=== PATIENT | female | born 1935 | race Native Hawaiian/Other Pacific Islander ===

== ENCOUNTER 2016-04-20 09:32 | Inpatient (IN) | payer OTHER ==
[~2016-04-20 09:32] MED LIST: AMOX875T8 PO; ASA LOW DOSE81 MG PO; CLOP75TA2 PO; DEXL60CA4 PO; DICL1GEL2 TOP; DILT30TA24 PO; DILTIAZEM240 M1 PO; DONE5TAB PO; FERR325T5 PO; GLIP10TA55 PO; GLIP5TAB65 PO; LEVO0.0529 PO; MELOXICAM7.5 MG OR; METO50TA63 PO; OMEPRAZOLE40 MG OR; PRILOSEC40 MG OR; ROSU10TA PO; TOPROL XL50 MG PO; TRAVATAN Z0.004 % OP; TRIM800T12 PO
== END 2016-05-21 08:00 | disposition still patient (30) ==
LOC: PAVB 09:32
PROVIDERS: ADMIT Internal Medicine
DX: Z51.89 Encounter for other specified aftercare (principal)

== ENCOUNTER 2016-05-21 09:00 | Inpatient (IN) | payer OTHER | END 2016-06-21 10:17 | disposition still patient (30) | LOC: PAVB 09:00 | PROVIDERS: ADMIT Internal Medicine | DX: Z51.89 Encounter for other specified aftercare (principal) ==

== ENCOUNTER 2016-05-22 07:17 | Outpatient (CLI) | payer OTHER | END 2016-05-22 19:19 | disposition home or self-care (01) | LOC: LAB 07:17 | DX: E11.9 Type 2 diabetes mellitus without complications (principal) | CPT/HCPCS: 36415; 83036 ==

== ENCOUNTER 2016-06-21 10:45 | Inpatient (IN) | payer OTHER | END 2016-07-19 09:46 | disposition still patient (30) | LOC: PAVB 10:45 | PROVIDERS: ADMIT Internal Medicine | DX: Z51.89 Encounter for other specified aftercare (principal) ==

== ENCOUNTER 2016-07-19 10:42 | Inpatient (IN) | payer OTHER | END 2016-08-19 08:07 | disposition still patient (30) | LOC: PAVB 10:42 | PROVIDERS: ADMIT Internal Medicine | DX: Z51.89 Encounter for other specified aftercare (principal) ==

== ENCOUNTER 2016-08-19 09:30 | Inpatient (IN) | payer OTHER | END 2016-09-18 09:13 | disposition still patient (30) | LOC: PAVB 09:30 | PROVIDERS: ADMIT Internal Medicine | DX: Z51.89 Encounter for other specified aftercare (principal) ==

== ENCOUNTER 2016-08-21 06:50 | Outpatient (CLI) | payer OTHER ==
[2016-08-21 07:55] LABS: PLATELET COUNT 201 K/uL (152-353)
[2016-08-21 09:58] LABS: POTASSIUM 3.9 mmol/L (3.6-5.2)
== END 2016-08-21 07:50 | disposition home or self-care (01) ==
LOC: LAB 06:50
PROVIDERS: Internal Medicine
DX: E11.9 Type 2 diabetes mellitus without complications (principal); I10 Essential (primary) hypertension; E03.8 Other specified hypothyroidism
CPT/HCPCS: 36415; 80053; 80061; 83036; 84443; 85027

== ENCOUNTER 2016-09-04 16:08 | Outpatient (CLI) | payer OTHER | END 2016-09-04 19:28 | disposition home or self-care (01) | LOC: LAB 16:08 | DX: Z16.24 Resistance to multiple antibiotics (principal) | CPT/HCPCS: 87081 ==

== ENCOUNTER 2016-09-18 10:04 | Inpatient (IN) | payer OTHER | END 2016-10-19 09:36 | disposition still patient (30) | LOC: PAVB 10:04 | PROVIDERS: ADMIT Internal Medicine | DX: Z51.89 Encounter for other specified aftercare (principal) ==

== ENCOUNTER 2016-10-19 10:03 | Inpatient (IN) | payer OTHER | END 2016-11-18 15:23 | disposition still patient (30) | LOC: PAVB 10:03 | PROVIDERS: ADMIT Internal Medicine | DX: Z51.89 Encounter for other specified aftercare (principal) ==

== ENCOUNTER 2016-10-21 18:28 | Outpatient (CLI) | payer OTHER | END 2016-10-21 19:30 | disposition home or self-care (01) | LOC: LAB 18:28 | DX: R82.99 Other abnormal findings in urine (principal) | CPT/HCPCS: 81000; 87077; 87086; 87088; 87186 ==

== ENCOUNTER 2016-11-18 15:44 | Inpatient (IN) | payer OTHER | END 2016-12-19 09:44 | disposition still patient (30) | LOC: PAVB 15:44 | PROVIDERS: ADMIT Internal Medicine | DX: Z51.89 Encounter for other specified aftercare (principal) ==

== ENCOUNTER 2016-11-22 02:40 | Outpatient (CLI) | payer OTHER | END 2016-11-22 18:59 | disposition home or self-care (01) | LOC: LAB 02:40 | DX: E11.9 Type 2 diabetes mellitus without complications (principal) | CPT/HCPCS: 36415; 83036 ==

== ENCOUNTER 2016-12-19 10:38 | Inpatient (IN) | payer OTHER | END 2017-01-19 08:42 | disposition still patient (30) | LOC: PAVB 10:38 | PROVIDERS: ADMIT Internal Medicine | DX: Z51.89 Encounter for other specified aftercare (principal) ==

== ENCOUNTER 2017-01-17 17:04 | Outpatient (CLI) | payer OTHER | END 2017-01-17 19:19 | disposition home or self-care (01) | LOC: LAB 17:04 | DX: R82.99 Other abnormal findings in urine (principal) | CPT/HCPCS: 81000; 87077; 87086; 87088; 87186 ==

== ENCOUNTER 2017-01-19 09:18 | Inpatient (IN) | payer OTHER | END 2017-02-18 09:09 | disposition still patient (30) | LOC: PAVB 09:18 → PAVA 02-09 09:38 | PROVIDERS: ADMIT Internal Medicine | DX: Z51.89 Encounter for other specified aftercare (principal) ==

== ENCOUNTER 2017-02-18 09:25 | Inpatient (IN) | payer OTHER | END 2017-03-21 10:25 | disposition still patient (30) | LOC: PAVA 09:25 | PROVIDERS: ADMIT Internal Medicine ==

== ENCOUNTER 2017-02-20 01:20 | Outpatient (CLI) | payer OTHER | END 2017-02-20 02:20 | disposition home or self-care (01) | LOC: LAB 01:20 | DX: N39.0 Urinary tract infection, site not specified (principal) | CPT/HCPCS: 81000 ==

== ENCOUNTER 2017-02-28 05:26 | Outpatient (CLI) | payer OTHER ==
[2017-02-28 06:11] LABS: PLATELET COUNT 213 K/uL (152-353)
[2017-02-28 06:19] LABS: POTASSIUM 3.7 mmol/L (3.6-5.2)
== END 2017-02-28 21:12 | disposition home or self-care (01) ==
LOC: LAB 05:26
PROVIDERS: Internal Medicine
DX: E11.9 Type 2 diabetes mellitus without complications (principal); D50.8 Other iron deficiency anemias; E03.8 Other specified hypothyroidism
CPT/HCPCS: 36415; 80053; 83036; 85027

== ENCOUNTER 2017-03-21 12:24 | Inpatient (IN) | payer OTHER | END 2017-04-20 08:13 | disposition still patient (30) | LOC: PAVA 12:24 | PROVIDERS: ADMIT Internal Medicine ==

== ENCOUNTER 2017-04-18 16:12 | Emergency (ER) | payer OTHER ==
[~2017-04-18] VITALS: Ht 162.6 cm; Wt 73.7 kg
[2017-04-18 23:03] VITALS: BP 141/72; TEMP 97.6
== END 2017-04-18 23:03 | disposition home or self-care (01) ==
LOC: ED 16:12
DX: S09.8XXA Other specified injuries of head, initial encounter (principal); S00.03XA Contusion of scalp, initial encounter; S43.492A Other sprain of left shoulder joint, initial encounter; M19.012 Primary osteoarthritis, left shoulder; S70.02XA Contusion of left hip, initial encounter; M16.12 Unilateral primary osteoarthritis, left hip; W05.0XXA Fall from non-moving wheelchair, initial encounter; Y92.128 Other place in nursing home as the place of occurrence of the external cause
CPT/HCPCS: 36415; 96372; 96374; 99284; J2060; J3486

== ENCOUNTER 2017-04-20 08:56 | Inpatient (IN) | payer OTHER | END 2017-05-21 08:31 | disposition still patient (30) | LOC: PAVA 08:56 | PROVIDERS: ADMIT Internal Medicine ==

== ENCOUNTER 2017-05-21 09:08 | Inpatient (IN) | payer OTHER | END 2017-06-21 08:33 | disposition still patient (30) | LOC: PAVA 09:08 | PROVIDERS: ADMIT Internal Medicine ==

== ENCOUNTER 2017-05-24 05:05 | Outpatient (CLI) | payer OTHER | END 2017-05-24 21:42 | disposition home or self-care (01) | LOC: LAB 05:05 | DX: R73.09 Other abnormal glucose (principal) | CPT/HCPCS: 83036 ==

== ENCOUNTER 2017-06-21 09:38 | Inpatient (IN) | payer OTHER | END 2017-07-19 08:08 | disposition still patient (30) | LOC: PAVA 09:38 | PROVIDERS: ADMIT Internal Medicine ==

== ENCOUNTER 2017-07-19 08:56 | Inpatient (IN) | payer OTHER | END 2017-08-19 08:00 | disposition still patient (30) | LOC: PAVA 08:56 | PROVIDERS: ADMIT Internal Medicine ==

== ENCOUNTER 2017-08-19 09:00 | Inpatient (IN) | payer OTHER | END 2017-09-18 08:12 | disposition still patient (30) | LOC: PAVA 09:00 | PROVIDERS: ADMIT Internal Medicine ==

== ENCOUNTER 2017-08-22 04:42 | Outpatient (CLI) | payer OTHER ==
[2017-08-22 05:35] LABS: PLATELET COUNT 188 K/uL (152-353)
[2017-08-22 05:54] LABS: POTASSIUM 3.8 mmol/L (3.6-5.2)
== END 2017-08-22 22:23 | disposition home or self-care (01) ==
LOC: LAB 04:42
PROVIDERS: Internal Medicine
DX: E11.9 Type 2 diabetes mellitus without complications (principal); I10 Essential (primary) hypertension; E03.8 Other specified hypothyroidism
CPT/HCPCS: 80053; 80061; 83036; 84443; 85027

== ENCOUNTER 2017-09-18 08:48 | Inpatient (IN) | payer OTHER | END 2017-10-19 08:21 | disposition still patient (30) | LOC: PAVA 08:48 | PROVIDERS: ADMIT Internal Medicine ==

== ENCOUNTER 2017-10-19 08:41 | Inpatient (IN) | payer OTHER | END 2017-11-18 14:15 | disposition still patient (30) | LOC: PAVA 08:41 | PROVIDERS: ADMIT Internal Medicine ==

== ENCOUNTER 2017-11-18 14:32 | Inpatient (IN) | payer OTHER | END 2017-12-19 08:00 | disposition still patient (30) | LOC: PAVA 14:32 | PROVIDERS: ADMIT Internal Medicine ==

== ENCOUNTER 2017-11-22 13:00 | Outpatient (CLI) | payer OTHER | END 2017-11-22 19:40 | disposition home or self-care (01) | LOC: LAB 13:00 | DX: E11.9 Type 2 diabetes mellitus without complications (principal) | CPT/HCPCS: 36415; 83036 ==

== ENCOUNTER 2017-12-14 10:41 | Outpatient (CLI) | payer OTHER | END 2017-12-14 19:46 | disposition home or self-care (01) | LOC: LAB 10:41 | DX: R41.82 Altered mental status, unspecified (principal) | CPT/HCPCS: 81000; 87077; 87086; 87088; 87186 ==

== ENCOUNTER 2017-12-19 09:00 | Inpatient (IN) | payer OTHER | END 2018-01-19 09:57 | disposition still patient (30) | LOC: PAVA 09:00 | PROVIDERS: ADMIT Internal Medicine ==

== ENCOUNTER 2018-01-19 10:09 | Inpatient (IN) | payer OTHER | END 2018-02-18 08:40 | disposition still patient (30) | LOC: PAVA 10:09 | PROVIDERS: ADMIT Internal Medicine ==

== ENCOUNTER 2018-02-18 08:58 | Inpatient (IN) | payer OTHER | END 2018-03-21 08:11 | disposition still patient (30) | LOC: PAVA 08:58 | PROVIDERS: ADMIT Internal Medicine ==

== ENCOUNTER 2018-02-21 07:26 | Outpatient (CLI) | payer OTHER ==
[2018-02-21 08:01] LABS: PLATELET COUNT 223 K/uL (152-353)
[2018-02-21 09:04] LABS: POTASSIUM 3.8 mmol/L (3.6-5.2)
== END 2018-02-21 20:31 | disposition home or self-care (01) ==
LOC: LAB 07:26
PROVIDERS: Internal Medicine
DX: E03.9 Hypothyroidism, unspecified (principal); E11.9 Type 2 diabetes mellitus without complications; I10 Essential (primary) hypertension
CPT/HCPCS: 36415; 80053; 83036; 84443; 85027

== ENCOUNTER 2018-03-21 08:26 | Inpatient (IN) | payer OTHER | END 2018-04-18 14:00 | disposition E | LOC: PAVA 08:26 | PROVIDERS: ADMIT Internal Medicine ==